=== PATIENT | female | born 1995 | race Caucasian/White ===

== ENCOUNTER 2018-01-14 13:17 | Emergency (ER) | payer OTHER ==
[~2018-01-14] VITALS: Ht 157.5 cm; Wt 62.6 kg
[2018-01-14 13:34] VITALS: TEMP 36.9; Ht 157.5 cm; Wt 62.6 kg
[2018-01-14] MEDS ORDERED: AMX500 PO (14:17)
[2018-01-14] MEDS ORDERED: HYDR-5688 PO (14:17)
--- NOTE | 2018-01-14 14:20 | EMERGENCY ROOM VISIT NOTE ---
History First contact with patient: 13:51 Chief Complaint: DENTAL PAIN Stated Complaint: WISDOM TOOTH PAIN Nursing Triage Summary: triage note; pt reports "i have wisdom tooth pain." pt reports right lower jaw pain x several days. History of Present Illness The patient is a 22 year old female who presents to the Emergency Room via private vehicle accompanied by parents with complaints of "wisdom tooth pain". The patient states that she has been experiencing pain in the right lower jaw for the past week. She states that she had the same pain about one year ago and notes that her wisdom teeth are beginning to protrude through the gumline, particularly in the posterior right portion of her dentition. She states that she has seen a dentist out of place her upon amoxicillin of which she is taking currently for any potential infection but notes the pain is progressing. She notes that she would like to have these removed soon but spring break his upcoming and she has a trip and would like to do it after that. She denies any fevers or chills. Review of Systems A complete 6-point Review of Systems was discussed with the patient, with pertinent positives and negatives listed in the History of Present Illness. All remaining Review of Systems questions can be considered negative unless otherwise specified. Past Medical/Surgical History Noncontributory. Social History Smoking Status: Never Smoker Patient is a [employer] student and is originally from [place]. Current/Historical Medications Scheduled Amoxicillin (Amoxicillin), 500 MG PO TID Scheduled PRN Hydrocodone/Acetaminophen 5MG/325MG ([place] 5MG/325MG), 1 TABLET PO Q4 PRN for Pain Physical Exam Vital Signs Date Time Temp Pulse Resp B/P (MAP) Pulse Ox O2 Delivery O2 Flow Rate FiO2 01/14/18 14:30 75 20 115/76 97 Room Air 01/14/18 13:34 36.9 70 18 117/76 94 Room Air Physical Exam VITAL SIGNS - Vital signs and nursing notes were reviewed. Stable. Afebrile. GENERAL -22-year-old female appearing her stated age who is in no acute distress. Communicates well with provider and answers questions appropriately. SKIN - Without rashes. There is no swelling or edema of the face. HEAD - NC/AT. EYES - Sclera anicteric. EARS - No deformities of external structures noted on gross examination bilaterally.External auditory canals without discharge or otorrhea. Tympanic membranes pearly gonzalez without retraction or bulging. No fluid or purulent material visualized behind the TM. Handle of malleus, umbo, cone of light, pars tensa/flaccid all easily visualized. NOSE - Midline and without cyanosis. No epistaxis or purulent drainage noted. MOUTH/OROPHARYNX - Without perioral cyanosis. Buccal mucosa pink and moist and without leukoplakia. Tongue midline with equal elevation of palate bilaterally. No tonsillar hypertrophy, erythema, or exudates noted. Fair dentition noted. There is evidence of protrusion of the patient's right posterior inferior molar/ wisdom tooth. No evidence of infection. It does appear to be coming in at an angle different from that of the other teeth. NECK - Neck with FROM. Supple to palpation. No lymphadenopathy noted. No nuchal rigidity. Tenderness to palpation overlying the right angle of the mandible. Medical Decision & Procedures Medical Decision Patient was seen and evaluated as above. She presents to us today with pain in the posterior right inferior dentition radiating to her right jaw. This is consistent with that of pain from erupting wisdom teeth. I informed her that for definitive management she would likely have to have this removed. I will defer short prescription of pain medication secondary to the objective findings today, and we'll also give her another prescription of amoxicillin in the event that this starts to drain a possible or becomes infected. I informed her to not take this antibiotic at this time as she currently started taking amoxicillin. She is to call a local oral surgeon or follow-up back home as soon as possible for further evaluation and management/definitive management of her wisdom teeth. She was educated upon management, educated upon worrisome symptoms in which to return, had questions answered prior to discharge, and was discharged home in good condition. No red flags were identified and the [place] drug monitoring system. She was thoroughly educated to not take Tylenol with this medication. In evaluation and treatment of this patient following differential diagnoses were entertained: Dental fracture, wisdom tooth eruption, infection, meningitis , encephalitis, among others. She denied chance of prior to prescribing the medication. Impression Primary Impression: Pain, dental Departure Information Dispostion Home / Self-Care Condition GOOD Prescriptions Amoxicillin (Amoxicillin) 500 Mg Cap 500 MG PO TID for 10 Days, #30 TABS Prov: Travis Young, YAS 01/14/18 Hydrocodone/Acetaminophen 5MG/325MG ([place] 5MG/325MG) Tab 1 TABLET PO Q4 Y for Pain, #18 TAB For Initial Treatment Prov: Travis Young PA-C 01/14/18 Referrals No Doctor, Assigned (PCP) Charlie Andre,Emelia.S. Patient Instructions My [facility] Additional Instructions You have been treated in the Emergency Department for Dental Pain. You have been prescribed NORCO to be used for pain control. This is a narcotic medication. You cannot drive or consume alcohol while on this medicine. This medicine should only be used for pain that cannot be controlled with over-the- counter pain medicines. You were prescribed Amoxicillin to be taken every 8 hours (ONLY AFTER YOU FINISH THE CURRENT ONES AND IF SYMPTOMS WORSEN). This is an antibiotic. All antibiotics have the potential to cause diarrhea. Stop this medication and contact a medical provider if you were to develop any significant adverse side effects including: wheezing, shortness of breath, passing out, vomiting, or a diffuse rash. Always take antibiotics as directed and COMPLETE the ENTIRE course regardless of the improvement of your symptoms. For pain control, you can use the following [id number] medicines PLEASE NO TYLENOL WITH THE NORCO!!! - Regular strength (200 mg/tab) Advil (ibuprofen) 1-2 tabs every 4-6 hours as needed. Do not exceed a dose of 3200 mg per day. PLEASE CALL DR. ANDRE, oral surgeon Refrain from smoking cigarettes or using chewing tobacco until you have been evaluated by your dentist. Keeping beverages lukewarm and consuming soft foods can decrease your pain. Warm compresses over the affected area may offer some relief. You MUST seek evaluation of your dental pain by a dentist following your visit to the Emergency Department. Return to the emergency department if you develop the following symptoms despite treatment course outlined above: fever, intractable pain, increased redness, swelling, or purulent discharge.
[2018-01-14 14:30] VITALS: BP 115/76; PULSE 75; O2SAT 97
== END 2018-01-14 14:37 | disposition home or self-care (01) ==
LOC: C.EDB 13:22 → C.EDD 14:37
DX: K08.89 Other specified disorders of teeth and supporting structures (principal)